=== PATIENT | male | born 1985 | race Two or more races ===

== ENCOUNTER 2023-05-23 14:23 | Emergency (ER) | payer OTHER ==
[2023-05-23] MEDS: traMADol 50 MG Tab PO STA (15:04)
[2023-05-23] MEDS: Ibuprofen 800 MG Tab PO ONE (15:05)
== END 2023-05-23 16:45 | disposition home or self-care (01) ==
LOC: FB.ED 14:23
DX: S52.514A Nondisplaced fracture of right radial styloid process, initial encounter for closed fracture (principal); W31.89XA Contact with other specified machinery, initial encounter
CPT/HCPCS: 73110; 99000; 99283; A9270